=== PATIENT | male | born 1990 | race Caucasian/White ===

== ENCOUNTER → 2020-09-27 | Outpatient (CLI) | payer SELFPAY ==
[~2020-09-27] MED LIST: BACT800T5 PO; FURO20TA2 PO; IBUP1TAB7 PO; LEVA1TAB2 PO; MAPA325T8 PO; TRAM50TA2 PO
== END ==
LOC: M LABSMTC 09:53
PROVIDERS: ATTEND Pediatrics
DX: Z20.822 Contact with and (suspected) exposure to COVID-19 (principal)

== ENCOUNTER 2021-01-01 11:49 | Emergency (ER) | payer MEDICAID, OTHER ==
[~2021-01-01] VITALS: Ht 185.4 cm; Wt 250.0 kg
[2021-01-01] MEDS ORDERED: ALBU83IN NEB (12:04)
--- NOTE | 2021-01-01 12:56 | REP ---
INDICATION: Coronavirus workup. COMPARISON: 02/21/2016 the latest prior also portable TECHNIQUE: Portable FINDINGS: The technique utilized in obtaining the radiograph has magnified the cardiac silhouette and accentuated the interstitial markings. There appear to be bibasilar opacities, however, the examination is extremely limited due to the patient's body habitus and portable technique. Heart is not enlarged. The pleural angles appear to be sharp. The osseous structures appear to be stable and intact. IMPRESSION: Limited examination showing possible bibasilar opacities. PA and lateral views of the chest recommended. <Electronically signed by Mario Rolon > 01/01/21 1823
[2021-01-01 13:07] LABS: BASO % 0.5 % (0.0-1.0); EOS % 0.5 % (0.0-3.0); HEMATOCRIT 46.7 % (42.0-52.0); HEMOGLOBIN 14.8 g/dl (13.5-17.5); LYMPH # 1.8 10^3/uL (1.5-5.0); LYMPH % 32.7 % (24.0-44.0); MEAN CORPUSCULAR HEMOGLOBIN 25.3 pg (27.0-33.0); MEAN CORPUSCULAR HGB CONC 31.7 g/dl (32.0-36.5); MONO # 0.5 10^3/uL (0.0-0.8); MONO % 8.7 % (2.0-8.0); NEUTROPHILS # 3.2 10^3/uL (1.5-8.5); NEUTROPHILS % 57.2 % (36.0-66.0); PLATELET COUNT, AUTOMATED 172 10^3/uL (150-450); RED BLOOD COUNT 5.84 10^6/uL (4.30-6.10); WHITE BLOOD COUNT 5.6 10^3/uL (4.0-10.0)
[2021-01-01 14:01] VITALS: BP 118/55
[2021-01-01 14:03] LABS: ANISOCYTOSIS 1+; LYMPHOCYTES 34 % (16-44); MONOCYTES 2 % (0-5); NEUTROPHILS 64 % (28-66); OVALOCYTES 1+; PLATELET ESTIMATE NORMAL (NORMAL); POIKILOCYTOSIS 1+
[2021-01-01 14:19] LABS: ALBUMIN 3.1 GM/DL (3.2-5.2); ALT/SGPT 39 U/L (12-78); BILIRUBIN,TOTAL 0.3 MG/DL (0.2-1.0); BLOOD UREA NITROGEN 11 MG/DL (7-18); C REACTIVE PROTEIN QUANTITATIV 1.27 MG/DL (0.00-0.30); CALCIUM LEVEL 8.1 MG/DL (8.5-10.1); CARBON DIOXIDE LEVEL 24 MEQ/L (21-32); CHLORIDE LEVEL 108 MEQ/L (98-107); CREATININE FOR GFR 0.77 MG/DL (0.70-1.30); FERRITIN 198 NG/ML (26-388); GLOMERULAR FILTRATION RATE > 60.0 (>60); GLUCOSE, FASTING 138 MG/DL (70-100); LDH LACTATE DEHYDROGENASE 194 U/L (87-241); MAGNESIUM LEVEL 2.1 MG/DL (1.8-2.4); SODIUM LEVEL 140 MEQ/L (136-145); TOTAL PROTEIN 6.5 GM/DL (6.4-8.2)
--- NOTE | 2021-01-01 16:02 | HPEPDOC ---
General Date of Admission 01/01/21 Date of Service: Jan 01, 2021 Chief Complaint The patient is a 30-year-old male admitted with a reason for visit of Covid + 12/25/20. Source: Patient History of Present Illness 30 year old male with morbid obesity who tested positive for COVID-19 on 12/25/20 with uppr respiratory symptoms from 12/24/20 came to ED for mild increase in SOB over the past 2 days for which he has been needing to use albuterol nebuliser and inhalor. In the ED his vitals were statble with no hypoxia when awake however when he was falling asleep he was desaturating which is due to his undiagnosed RITU. In the ED on evaluation it was felt he would benefit from M onoclonal antibody treatment . Treatment option was discussed with Jerry he he agreed to the treatment. Patient was consented for the infusion. Home Medications Scheduled PRN Albuterol Sulf (Albuterol Sulfate) 2.5 Mg/3 Ml Vial.neb, 1 VIAL NEB Q4HP PRN for wheezing, (Reported) Allergies Coded Allergies: No Known Allergies (Unverified , 02/21/16) Past Medical History Medical History Morbid obesity with BMI of 72 Suspected RITU , pulse oxymetry drops when he was falling asleep inthe ED. Prediabetes Surgical History tonsillectomy and adenoidectomy Family History Significant Family History: Diabetes, Heart disease Social History * Smoker: former Smoker Alcohol: occationally Drugs: denies A-FIB/CHADSVASC A-FIB History Current/History of A-Fib/PAF?: No Review of Systems Constitutional: Reports: Fatigue; Denies: Chills, Fever, Night Sweats Eyes: Denies: Pain, Vision change ENT: Denies: Head Aches, Ear Pain, Dysphagia Skin: Denies: Rash, Lesions, Breakdown Pulmonary: Reports: Dyspnea, Cough Cardiovascular: Denies: Chest Pain, Palpitations, Orthopnea, Paroxysmal Noc. Dyspnea, Lt Headedness Gastrointestinal: Denies: Nausea, Vomiting, Abdominal Pain, Diarrhea Genitourinary: Denies: Dysuria, Frequency, Incontinence, Retention Hematologic: Denies: Bruising, Bleeding Excessively Musculoskeletal: Denies: Neck Pain, Back Pain, Joint Pain, Muscle Pain, Spasms Neurological: Denies: Weakness, Numbness, Change in speech, Confusion Physical Examination General Exam: Positive: Alert, Cooperative, No Acute Distress Eye Exam: Positive: PERRLA, Conjunctiva & lids normal, EOMI; Negative: Sclera icteric ENT Exam: Positive: Atraumatic, Mucous membr. moist/pink, Pharynx Normal Neck Exam: Positive: Supple Chest Exam: Positive: Diminished (very distant breath sounds. ); Negative: Rhonchi, Wheezing Heart Exam: Positive: Rate Normal, Regular Rhythm, Normal S1, Normal S2; Negative: Murmurs, Rubs Abdomen Exam: Positive: Normal bowel sounds, Soft, Other (obese); Negative: Tenderness Extremity Exam: Negative: Clubbing, Cyanosis, Edema Skin Exam: Positive: Nl turgor and temperature; Negative: Breakdown, Lesion Neuro Exam: Positive: Normal Gait, Normal Speech, Cranial Nerves 3-12 NL, Reflexes 2+ Psych Exam: Positive: Memory Intact, Oriented x 3 Vital Signs Vital Signs Date Time Temp Pulse Resp B/P (MAP) Pulse Ox O2 Delivery O2 Flow Rate FiO2 01/01/21 14:01 79 118/55 (76) 90 01/01/21 13:17 Room Air 01/01/21 11:51 98.1 20 Laboratory Data Labs 24H Laboratory Tests 2 01/01/21 12:41: Immature Granulocyte % (Auto) 0.4, Neutrophils (%) (Auto) 57.2, Lymphocytes (%) (Auto) 32.7, Monocytes (%) (Auto) 8.7H, Eosinophils (%) (Auto) 0.5, Basophils (%) (Auto) 0.5, Neutrophils # (Auto) 3.2, Lymphocytes # (Auto) 1.8, Monocytes # (Auto) 0.5, Eosinophils # (Auto) 0.0, Basophils # (Auto) 0.0, Nucleated Red Blood Cells % (auto) 0.0, Neutrophils 64, Lymphocytes (Manual) 34, Monocytes (Manual) 2, Poikilocytosis 1+, Anisocytosis 1+, Ovalocytes 1+, Platelet Estimate NORMAL, D-Dimer, Quantitative 915.65H, Lactic Acid Level 1.2, Procalcitonin <0.05 01/01/21 13:35: Anion Gap 8, Glomerular Filtration Rate > 60.0, Calcium Level 8.1L, Magnesium Level 2.1, Ferritin 198, Total Bilirubin 0.3, Aspartate Amino Transf (AST/SGOT) 26, Alanine Aminotransferase (ALT/SGPT) 39, Alkaline Phosphatase 62, Lactate Dehydrogenase 194, C-Reactive Protein, Quantitative 1.27H, Total Protein 6.5, Albumin 3.1L, Albumin/Globulin Ratio 0.9 CBC/BMP Laboratory Tests 01/01/21 12:41 01/01/21 13:35 Assessment/Plan 30 year old male with morbid obesity who tested positive for COVID-19 on 12/25/20 with uppr respiratory symptoms from 12/24/20 came to ED for mild increase in SOB over the past 2 days for which he has been needing to use albuterol nebuliser and inhalor. In the ED his vitals were statble with no hypoxia when awake however when he was falling asleep he was desaturating which is due to his undiagnosed RITU. In the ED on evaluation it was felt he would benefit from Monoclonal antibody treatment . Treatment option was discussed with Jerry he he agreed to the treatment. Patient was consented for the infusion. COVID -19 infection for Monoclonal antibody infusion Morbid obesity with undiagnosed RITU oxygen saturations drop to below 85% when patient is falling asleep. Referral given to a PMD . He should be referred for a sleep study. He had been referred in 2019 but he did not do it. Plan / VTE VTE Prophylaxis Ordered?: No Qiana Guerrero MD Jan 01, 2021 16:01
--- NOTE | 2021-01-02 23:55 | ECGEPIP ---
[facility] - ED Test Date: 2021-01-01 Pat Name: ANTOINE VELAZQUEZ Department: Room: - Gender: Male Splitter Head: TIANA : 1990 Requested By: JENIFFER Gomes Order Number: [id number] Reading MD: Alexandro Gray Measurements Intervals [place] Rate: 84 P: 41 OK: 168 QRS: 56 QRSD: 100 T: 27 QT: 372 QTc: 439 Interpretive Statements Normal sinus rhythm Low voltage QRS NO PRIORS FOR COMPARISON Electronically Signed on 01-02-2021 23:54:48 EDT by Alexandro Gray
== END 2021-01-01 16:02 | disposition home or self-care (01) ==
LOC: M ED 11:49
DX: J12.82 Pneumonia due to coronavirus disease 2019 (principal); U07.1 COVID-19

== ENCOUNTER 2021-01-01 16:11 | Outpatient (CLI) | payer MEDICAID, OTHER ==
[2021-01-01 16:11] VITALS: BP 127/60
[~2021-01-01 16:11] MED LIST changes: +ACETAMINOPHEN TAB 650MG DOSE (2X325MG) PO PRN; +ALBU83IN NEB; +ALBUTEROL 90 MCG/ACT 8GM HFA INHALER INH PRN; +ALBUTEROL SULFATE 2.5 MG/0.5 ML INH NEB SOLN INH PRN; +EPINEPHrine INJ 1 MG/ML 1ML AMP IM PRN; +NS 1,000 ML IV SCH; +diphenhydrAMINE 50MG/ML VIAL (J1200) IV PRN; +methylPREDNISolone 125MG 2ML VIAL IV PRN
[2021-01-01 16:38] VITALS: BP 116/63
[2021-01-01] MEDS ORDERED: CASIRIVIMAB/IMDEVIMAB 1,200 MG in NS 250 ML IV ONE (17:00)
[2021-01-01 17:10] VITALS: BP 116/69
[2021-01-01 17:40] VITALS: BP 119/61
[2021-01-01 17:57] VITALS: BP 118/65
[2021-01-01 19:06] VITALS: BP 137/74
== END 2021-01-01 19:06 | disposition home or self-care (01) ==
LOC: M 4MAIN 16:11 → M OPCLI4 16:11
PROVIDERS: ATTEND Internal Medicine Nephrology
DX: U07.1 COVID-19 (principal)

== ENCOUNTER → 2022-01-23 | Outpatient (CLI) | payer OTHER ==
[~2022-01-23] MED LIST changes: -ACETAMINOPHEN TAB 650MG DOSE (2X325MG) PO PRN; +ALBU2.5V10 NEB; -ALBU83IN NEB; -ALBUTEROL 90 MCG/ACT 8GM HFA INHALER INH PRN; -ALBUTEROL SULFATE 2.5 MG/0.5 ML INH NEB SOLN INH PRN; -EPINEPHrine INJ 1 MG/ML 1ML AMP IM PRN; -NS 1,000 ML IV SCH; -diphenhydrAMINE 50MG/ML VIAL (J1200) IV PRN; -methylPREDNISolone 125MG 2ML VIAL IV PRN
[2022-01-23 15:04] LABS: CHOLESTEROL LEVEL 115 MG/DL (<200); CHOLESTEROL RISK RATIO 2.674 (<5); HDL CHOLESTEROL 43 MG/DL (>40); LDL CHOLESTEROL 49 MG/DL (<100); NON-HDL-C 72 MG/DL; TRIGLYCERIDES LEVEL 116 MG/DL (<150)
[2022-01-23 15:24] LABS: HEMOGLOBIN A1c 7.5 %
[2022-01-23 16:09] LABS: HEPATITIS C VIRUS ABY INDEX < 0.0 INDEX (<0.8); HIV 1&2 SCREEN CENTAUR NEGATIVE (NEGATIVE)
== END ==
LOC: M PLALAB 11:33
PROVIDERS: ATTEND Family Medicine
DX: Z11.9 Encounter for screening for infectious and parasitic diseases, unspecified (principal)

== ENCOUNTER → 2022-06-09 | Outpatient (CLI) | payer OTHER | LOC: M SLEEP HO 11:16 | PROVIDERS: ATTEND Family Medicine | DX: E66.9 Obesity, unspecified (principal) ==

== ENCOUNTER → 2022-07-24 | Outpatient (CLI) | payer OTHER ==
[2022-07-24 19:05] LABS: ALBUMIN 3.4 G/DL (3.2-5.2); ALKALINE PHOSPHATASE 72 U/L (46-116); ALT/SGPT 24 U/L (7.0-40); AST/SGOT < 8 U/L (<34); BILIRUBIN,TOTAL 0.5 MG/DL (0.3-1.2); BLOOD UREA NITROGEN 13 MG/DL (9-23); CALCIUM LEVEL 8.4 MG/DL (8.5-10.1); CARBON DIOXIDE LEVEL 28 MMOL/L (20-31); CHLORIDE LEVEL 104 MMOL/L (98-107); CREATININE FOR GFR 0.68 MG/DL (0.70-1.30); GLOMERULAR FILTRATION RATE > 60.0 (>60); GLUCOSE, FASTING 103 MG/DL (60-100); POTASSIUM SERUM 4.3 MMOL/L (3.5-5.1); SODIUM LEVEL 141 MMOL/L (136-145)
[2022-07-24 19:09] LABS: HEMOGLOBIN A1c 6.9 % (4.0-6.0)
== END ==
LOC: M PLALAB 14:41
PROVIDERS: ATTEND Family Medicine
DX: E11.9 Type 2 diabetes mellitus without complications (principal)

== ENCOUNTER → 2023-11-04 | Outpatient (CLI) | payer OTHER ==
[2023-11-04 18:43] LABS: HEMATOCRIT 46.3 % (42.0-52.0); HEMOGLOBIN 14.6 g/dl (13.5-17.5); MEAN CORPUSCULAR HEMOGLOBIN 25.9 pg (27.0-33.0); MEAN CORPUSCULAR HGB CONC 31.5 g/dl (32.0-36.5); MEAN CORPUSCULAR VOLUME 82.1 fl (80.0-96.0); PLATELET COUNT, AUTOMATED 325 10^3/uL (150-450); RED BLOOD COUNT 5.64 10^6/uL (4.30-6.10); WHITE BLOOD COUNT 13.4 10^3/uL (4.0-10.0)
[2023-11-04 19:15] LABS: HEMOGLOBIN A1c 7.1 % (4.0-6.0)
[2023-11-04 19:16] LABS: ALBUMIN 3.6 G/DL (3.2-5.2); ALKALINE PHOSPHATASE 74 U/L (46-116); ALT/SGPT 25 U/L (7.0-40); AST/SGOT 13 U/L (<34); BILIRUBIN,TOTAL 0.5 MG/DL (0.3-1.2); BLOOD UREA NITROGEN 12 MG/DL (9-23); CALCIUM LEVEL 9.2 MG/DL (8.5-10.1); CARBON DIOXIDE LEVEL 27 MMOL/L (20-31); CHLORIDE LEVEL 105 MMOL/L (98-107); CHOLESTEROL LEVEL 128 MG/DL (<200); CHOLESTEROL RISK RATIO 3.91 (<5); CREATININE FOR GFR 0.75 MG/DL (0.70-1.30); GLOMERULAR FILTRATION RATE > 60.0 (>60); GLUCOSE, FASTING 113 MG/DL (60-100); HDL CHOLESTEROL 32.7 MG/DL (>40); LDL CHOLESTEROL 65.3 MG/DL (<100); NON-HDL-C 95.3 MG/DL; POTASSIUM SERUM 4.5 MMOL/L (3.5-5.1); SODIUM LEVEL 139 MMOL/L (136-145); TOTAL PROTEIN 7.2 G/DL (5.7-8.2); TRIGLYCERIDES LEVEL 150 MG/DL (<150)
== END ==
LOC: M PLALAB 15:23
PROVIDERS: ATTEND Family Medicine
DX: E11.9 Type 2 diabetes mellitus without complications (principal); E66.9 Obesity, unspecified; G47.33 Obstructive sleep apnea (adult) (pediatric)

== ENCOUNTER → 2024-02-04 | Outpatient (CLI) | payer OTHER ==
[2024-02-04 18:41] LABS: HEMOGLOBIN A1c 6.6 % (4.0-6.0)
== END ==
LOC: M PLALAB 15:29
PROVIDERS: ATTEND Family Medicine
DX: E11.9 Type 2 diabetes mellitus without complications (principal)

== ENCOUNTER 2024-08-18 12:46 | Emergency (ER) | payer OTHER ==
[~2024-08-18] VITALS: Ht 182.9 cm; Wt 263.3 kg
[2024-08-18 13:49] LABS: VENOUS BASE EXCESS 0.5 (-2.0-2.0); VENOUS HCO3 27.5 MMOL/L (23.0-27.0); VENOUS PARTIAL PRESSURE CO2 52.7 mmHg (38.0-50.0); VENOUS PARTIAL PRESSURE O2 34.6 mmHg (30.0-50.0); VENOUS PH 7.335 UNITS (7.330-7.430); VENOUS TOTAL CO2 29.1 MMOL/L (24.0-28.0)
[2024-08-18 13:56] LABS: BASO # 0.1 10^3/uL (0.0-0.2); BASO % 0.4 % (0.0-1.0); EOS # 0.1 10^3/uL (0.0-0.5); EOS % 0.5 % (0.0-3.0); HEMATOCRIT 49.7 % (42.0-52.0); HEMOGLOBIN 15.7 g/dl (13.5-17.5); LYMPH # 1.3 10^3/uL (1.5-5.0); LYMPH % 7.6 % (24.0-44.0); MEAN CORPUSCULAR HEMOGLOBIN 25.8 pg (27.0-33.0); MEAN CORPUSCULAR HGB CONC 31.6 g/dl (32.0-36.5); MEAN CORPUSCULAR VOLUME 81.7 fl (80.0-96.0); MONO # 1.6 10^3/uL (0.0-0.8); NEUTROPHILS # 14.1 10^3/uL (1.5-8.5); NEUTROPHILS % 81.9 % (36.0-66.0); PLATELET COUNT, AUTOMATED 244 10^3/uL (150-450); RED BLOOD COUNT 6.08 10^6/uL (4.30-6.10); WHITE BLOOD COUNT 17.2 10^3/uL (4.0-10.0)
[2024-08-18 14:08] LABS: KETONE, URINE AUTO RFX 1+ mg/dL (NEGATIVE); NITRITE, URINE AUTO RFX NEGATIVE (NEGATIVE); RBC, URINE AUTO RFX 1 /HPF (0-3); SQUAM EPITHELIAL CELL UR AURFX 2 /HPF (0-6); WBC, URINE AUTO RFX 4 /HPF (0-3)
[2024-08-18 14:09] LABS: LEUKOCYTE ESTERASE UR AUTO RFX 2+ (NEGATIVE)
[2024-08-18 14:24] LABS: LIPASE 24 U/L (12-53)
[2024-08-18 14:26] LABS: ALBUMIN 3.4 G/DL (3.2-5.2); ALKALINE PHOSPHATASE 95 U/L (40-129); ALT/SGPT 31 U/L (7.0-40); AST/SGOT 27 U/L (<34); BILIRUBIN,DIRECT 0.3 MG/DL (<0.4); BILIRUBIN,TOTAL 0.8 MG/DL (0.3-1.2); BLOOD UREA NITROGEN 13 MG/DL (9-23); CALCIUM LEVEL 8.6 MG/DL (8.5-10.1); CARBON DIOXIDE LEVEL 28 MMOL/L (20-31); CHLORIDE LEVEL 98 MMOL/L (98-107); CREATININE FOR GFR 0.65 MG/DL (0.70-1.30); GLOMERULAR FILTRATION RATE > 90.0 (>60); GLUCOSE, FASTING 337 MG/DL (60-100); POTASSIUM SERUM 4.7 MMOL/L (3.5-5.1); SODIUM LEVEL 135 MMOL/L (136-145); TOTAL PROTEIN 7.5 G/DL (5.7-8.2)
[2024-08-18 14:27] LABS: ACETONE/KETONE 0.75 MMOL/L (0.02-0.27)
[2024-08-18 14:34] LABS: OSMOLALITY SERUM 300 MOSM/KG (275-295)
[2024-08-18 14:44] LABS: HEMOGLOBIN A1c 10.9 % (4.0-6.0)
[2024-08-18] MEDS: HumuLIN R (REGULAR) INSULIN (NovoLIN R) **100U/ML** PER UNIT SC ONE (18:02)
[2024-08-18] MEDS: NS 500 ML IV ONE (18:02)
[2024-08-18] MEDS: NS (Normal Saline) 0.9% 1,000 ML IV ONE (20:44)
[2024-08-18] MEDS: HumuLIN R (REGULAR) INSULIN (NovoLIN R) **100U/ML** PER UNIT IV STA (20:44)
[2024-08-18 22:36] VITALS: BP 145/89; TEMP 98.4; O2SAT 96
== END 2024-08-18 22:37 | disposition home or self-care (01) ==
LOC: M ED 12:46
DX: R73.9 Hyperglycemia, unspecified (principal); F10.10 Alcohol abuse, uncomplicated; F12.10 Cannabis abuse, uncomplicated; Z79.52 Long term (current) use of systemic steroids
CPT/HCPCS: 71046; 80048; 80076; 81001; 82010; 82803; 82947; 83036; 83690; 83930; 85025; 87086; 96361; 96372; 96374; 99284; J1815

== ENCOUNTER → 2025-01-22 | Outpatient (CLI) | payer OTHER ==
[2025-01-22 14:11] LABS: BASO # 0.1 10^3/uL (0.0-0.2); BASO % 0.5 % (0.0-1.0); EOS # 0.1 10^3/uL (0.0-0.5); EOS % 0.7 % (0.0-3.0); LYMPH # 3.4 10^3/uL (1.5-5.0); LYMPH % 19.6 % (24.0-44.0); MONO # 1.1 10^3/uL (0.0-0.8); MONO % 6.4 % (2.0-8.0); NEUTROPHILS # 12.6 10^3/uL (1.5-8.5); NEUTROPHILS % 72.3 % (36.0-66.0); PLATELET COUNT, AUTOMATED 302 10^3/uL (150-450)
== END ==
LOC: M LAB 13:43
PROVIDERS: ATTEND Registered Nurse
DX: D72.829 Elevated white blood cell count, unspecified (principal)